=== PATIENT | female | born 1995 | race Asian ===

== ENCOUNTER 2017-04-10 05:01 | Inpatient (IN) | payer MEDICAID ==
[~2017-04-10] VITALS: Ht 165.1 cm; Wt 79.5 kg
[~2017-04-10 05:01] MED LIST: LACTATED RINGER'S 1,000 ML IV PRN
[2017-04-10 05:29] VITALS: BP 130/88; PULSE 81; RESP 20; Ht 165.1 cm; Wt 79.5 kg
--- NOTE | 2017-04-10 05:53 | TRIAGE ---
OB Triage Datetime Report Generated by CPN: 04/10/2017 05:53 Datetime: 04/10/2017 05:52 Assessment Type: Admission Assessment Maternal Assessment Level of Consciousness: Fully Conscious DTR's/Clonus: DTRs 2+; No Clonus Headache: Denies Blurred Vision: No Respiratory Effort: Unlabored; Regular Rhythm; Equal Expansion Breath Sounds, Left: Clear and Equal Breath Sounds, Right: Clear and Equal Nausea/Vomiting: Denies RUQ Epigastric Pain: Denies Facial Edema: None Fall Risk Assessment History of Falling: (0) No Secondary Diagnosis: (0) No Ambulatory Aid: (0) Bedrest/Nurse Assist IV Therapy: (0) No Gait: (0) Normal/Bedrest/Immobile Mental Status: (0) Oriented to Own Ability Fall Score: 0 Fall Risk Score Definition: No Risk: No action required Datetime: 04/10/2017 05:36 Time of Arrival: 04/10/2017 05:36 EGA: 41.0 Arrived By: Stretcher Arrived From: Other Unit in Hospital Datetime: 04/10/2017 05:24 Vaginal Exam Dilatation (cms): 4.0 Effacement (%): 90 Station: -2 Exam By: r tyson Datetime: 04/10/2017 05:00 Time of Arrival: 04/10/2017 05:00 EGA: 41.0 Arrived By: Ambulatory Arrived From: Home Chief Complaint: uterine contractions since 344 Movement: Present Contractions: Regular Time Contractions Began: 04/10/2017 03:45 Contractions: 3-5 Rupture of Membranes: Denies Vaginal Bleeding: None Vaginal Discharge: Denies Recent Sexual Intercouse: Denies Abdominal Trauma: Not Applicable Patient Complaints: None Time Provider Notified: 04/10/2017 05:15 Provider Notified: anurag Initial Plan: monitors apply, call
[2017-04-10] MEDS: LACTATED RINGER'S 1,000 ML IV SCH ×2 (05:55→07:05)
[2017-04-10] MEDS ORDERED: CARBOPROST 250 MCG INJ IM PRN (06:00)
[2017-04-10] MEDS ORDERED: OXYTOCIN 30 UNITS/LR 500 ML IV PRN (06:00)
[2017-04-10] MEDS ORDERED: MISOPROSTOL 200 MCG TAB PR PRN (06:00)
[2017-04-10] MEDS ORDERED: LIDOCAINE 1% (MPF) 30 ML INJ INJ PRN (06:00)
[2017-04-10] MEDS ORDERED: METHYLERGONOVINE 0.2 MG INJ IM PRN (06:00)
[2017-04-10] MEDS ORDERED: AMPICILLIN 2 GM/NS (PMX) 100 ML IV ONE (06:00)
[2017-04-10] MEDS ORDERED: IBUPROFEN 600 MG TAB PO PRN (06:00)
[2017-04-10] MEDS ORDERED: OXYTOCIN 30 UNITS/LR 500 ML IV SCH ×2 (06:00)
[2017-04-10 06:10] LABS: BASOPHILS % 0.2 % (0.0-2.0); EOSINOPHILS % 0.2 % (0.0-7.0); HEMOGLOBIN 13.9 g/dl (12.0-16.0); LYMPHOCYTES % 21.4 % (15.0-51.0); MEAN CORPUSCULAR HEMOGLOBIN 31.9 pg (29.0-33.0); MEAN CORPUSCULAR HGB CONC 35.6 g/dl (32.0-37.0); MEAN CORPUSCULAR VOLUME 89.4 fl (82.0-101.0); MEAN PLATELET VOLUME 10.3 fl (7.4-10.4); MONOCYTE # 0.9 10^3/ul (0.3-0.9); MONOCYTES % 6.6 % (0.0-11.0); NEUTROPHIL # 9.9 10^3/ul (1.6-7.5); PLATELET COUNT 219 10^3/UL (140-415); RED BLOOD COUNT 4.36 10^6/ul (4.20-5.40); RED CELL DISTRIBUTION WIDTH 12.1 % (11.5-14.5)
[2017-04-10 06:34] LABS: INR 0.9; PROTIME 12.1 Sec (12.2-14.2); PT RATIO 0.9
[2017-04-10 06:35] LABS: PARTIAL THROMBOPLASTIN TIME 28.3 Sec (25.0-35.0)
[2017-04-10] MEDS ORDERED: FENTAnyl 2MCG/ML-ROPIV 0.2% 100 ML ONE (07:12)
[2017-04-10 07:45] LABS: ALBUMIN 3.6 g/dl (3.3-4.9); ALBUMIN/GLOBULIN RATIO 1.16; BILIRUBIN,INDIRECT 0.2 mg/dl (0-1.1); BILIRUBIN,TOTAL 0.2 mg/dl (0.2-1.3); CALCIUM 9.3 mg/dl (8.4-10.2); CREATININE 0.57 mg/dl (0.44-1.00); POTASSIUM 3.9 mmol/L (3.5-5.1); TOTAL PROTEIN 6.7 g/dl (6.1-8.1); URIC ACID 6.3 mg/dl (3.1-7.9)
--- NOTE | 2017-04-10 08:16 | HP ---
Date/Time of Note Date/Time of Note DATE: 04/10/17 TIME: 08:13 OB - History Hx of Present Chief Complaint: contractions Estimated Due Date: Apr 03, 2017 : 1 Para: 0 Spontaneous : 0 Therapeutic : 0 Care: Good Care Ultrasounds: Normal mid trimester US Obstetrical Complications: None Medical Complications: None Past Family/Social History * Past Medical, Surgical, Family and Obstetric Histories reviewed from chart. GBS Status: Positive OB Admission Exam Vital Signs Vital Signs Vital Signs Date Time Temp Pulse Resp B/P Pulse Ox O2 Delivery O2 Flow Rate FiO2 04/10/17 05:29 98.1 81 20 130/88 Room Air Physical Exam HEENT: WNL Heart: Rhythm Normal Lungs: Clear, Equal Abdomen: WNL Extremities: Normal Reflexes: Normal Cervical Dilatation: 4cm Effacement: 100% Station: -1 Heart Rate: 120's Accelerations: Accelerations Present Decelerations: No Decelerations Varibility: Moderate Last 72 hours Lab Results CBC & BMP 04/10/17 05:50 Liver Function Test 04/10/17 05:50 Alanine Aminotransferase (ALT/SGPT) 24 Albumin 3.6 Alkaline Phosphatase 147 H Aspartate Amino Transf (AST/SGOT) 33 Direct Bilirubin 0.00 Total Protein 6.7 OB Assessment/Plan Reason for admission: active labor Plan: Expectant Management ARLINE LUA MD Apr 10, 2017 08:16
[2017-04-10] MEDS ORDERED: FENTAnyl 2MCG/ML-ROPIV 0.2% 100 ML BAG EPI SCH (09:00)
[2017-04-10] MEDS ORDERED: DIPHENHYDRAMINE 50 MG INJ IV PRN (09:00)
[2017-04-10] MEDS ORDERED: ONDANSETRON 4 MG INJ IV PRN ×2 (09:00→16:30)
[2017-04-10] MEDS ORDERED: NALOXONE (0.4 MG/ML) INJ IV PRN (09:00)
[2017-04-10] MEDS ORDERED: TRIMETHOBENZAMIDE 100 MG/ML VIAL IM PRN (09:00)
[2017-04-10] MEDS ORDERED: AMPICILLIN 1 GM/NS (PMX) 50 ML IV SCH (10:00)
[2017-04-10 10:53] LABS: ADD UMIC YES; UR ASCORBIC ACID NEGATIVE (NEGATIVE); UR BACTERIA FEW /HPF (NONE SEEN); UR BILIRUBIN (Dip) NEGATIVE (NEGATIVE); UR BLOOD (Dip) 2+ mg/dL (NEGATIVE); UR CLARITY SLIGHTLY CLOUDY (CLEAR); UR COLOR YELLOW (YELLOW); UR GLUCOSE (Dip) NEGATIVE (NEGATIVE); UR KETONES (Dip) NEGATIVE (NEGATIVE); UR LEUKOCYTE ESTERASE (Dip) 1+ Leu/ul (NEGATIVE); UR NITRITE (Dip) NEGATIVE (NEGATIVE); UR RBC 0 /HPF (0-5); UR SPECIFIC GRAVITY (Dip) 1.013 (1.003-1.030); UR SQUAMOUS EPITHELIAL CELL FEW /HPF (FEW); UR TOTAL PROTEIN (Dip) NEGATIVE (NEGATIVE); UR UROBILINOGEN (Dip) NEGATIVE (NEGATIVE)
--- NOTE | 2017-04-10 14:46 | LDN ---
Date/Time of Note Date/Time of Note DATE: 04/10/17 TIME: 14:42 Delivery Summary Normal spontaneous vaginal delivery of a baby from OA position shoulders delivered without any difficulty rest of the baby's body follow cord clamped after stopped pulsation placenta is spontaneous expulsion inspected complete patient sustained small first-degree perineal laceration estimated blood loss 300 cc Weeks of Gestation 41 week Placenta Delivered: Spontaneously Meconium: none Episiotomy: No Perineal laceration: 1 Laceration repair: First-degree perineal laceration repaired with 3-0 chromic catgut Anesthesia type: Epidural Sponge & Needle done & correct: Yes All needle counts correct: Yes Any foreign bodies felt in the: No Problems: Infant Delivery Information Sex Sex: male Apgars 1 Minute: 8 5 Minute: 9 Suctioning Nose & mouth suctioned at niraj: Yes Delee suction performed: No Umbilical Cord Umbilical cord with: 3 Vessels Cord presentations: nuchal cord ELAINE MAY MD Apr 10, 2017 14:46
[2017-04-10] MEDS: OXYTOCIN 30 UNITS/LR 500 ML IV SCH ×2 (16:03→19:14)
[2017-04-10] MEDS ORDERED: OXYCODONE/ASPIRIN (4.88/325) TAB PO PRN ×2 (16:30)
[2017-04-10] MEDS ORDERED: BENZOCAINE 20% 56 ML SPRAY TOP PRN (16:30)
[2017-04-10] MEDS ORDERED: LANOLIN 7 GM TUBE TOP PRN (16:30)
[2017-04-10] MEDS ORDERED: WITCH HAZEL/GLYCERIN PAD PR PRN (16:30)
[2017-04-10] MEDS ORDERED: DIBUCAINE 1% 30 GM OINT TOP PRN (16:30)
[2017-04-10] MEDS ORDERED: HYDROCODONE/APAP (5/325) TAB PO PRN ×2 (16:30)
[2017-04-10] MEDS ORDERED: ACETAMINOPHEN 325 MG TAB PO PRN (16:30)
[2017-04-10] MEDS: IBUPROFEN 600 MG TAB PO SCH ×2 (17:55→23:23)
[2017-04-10 20:00] VITALS: BP 134/82; PULSE 68; RESP 18
[2017-04-10] MEDS ORDERED: INFLUENZA VIRUS VACCINE 0.5 ML (DISPENSING) IM* ONE (20:00)
[2017-04-10] MEDS: SENNA/DOCUSATE NA (8.6MG/50MG) TAB PO SCH (20:55)
[2017-04-10 21:43] VITALS: BP 123/75; PULSE 80; RESP 18
[2017-04-11 00:30] VITALS: BP 120/70; PULSE 78; RESP 18
[2017-04-11] MEDS: IBUPROFEN 600 MG TAB PO SCH ×3 (06:52→18:05)
[2017-04-11 08:30] VITALS: BP 122/75; PULSE 72; RESP 16
[2017-04-11] MEDS: SENNA/DOCUSATE NA (8.6MG/50MG) TAB PO SCH ×2 (09:39→22:05)
[2017-04-11 10:07] LABS: BASOPHILS % 0.2 % (0.0-2.0); EOSINOPHILS % 0.3 % (0.0-7.0); HEMOGLOBIN 11.8 g/dl (12.0-16.0); LYMPHOCYTES # 1.9 10^3/ul (0.8-2.9); LYMPHOCYTES % 12.2 % (15.0-51.0); MEAN CORPUSCULAR HEMOGLOBIN 31.9 pg (29.0-33.0); MEAN CORPUSCULAR HGB CONC 34.7 g/dl (32.0-37.0); MEAN CORPUSCULAR VOLUME 91.9 fl (82.0-101.0); MEAN PLATELET VOLUME 10.6 fl (7.4-10.4); MONOCYTE # 0.7 10^3/ul (0.3-0.9); MONOCYTES % 4.6 % (0.0-11.0); NEUTROPHIL # 12.6 10^3/ul (1.6-7.5); NEUTROPHILS % 82.3 % (39.0-77.0); PLATELET COUNT 197 10^3/UL (140-415); RED CELL DISTRIBUTION WIDTH 12.4 % (11.5-14.5); WHITE BLOOD COUNT 15.4 10^3/ul (4.8-10.8)
[2017-04-11 12:00] VITALS: BP 108/63; PULSE 70; RESP 17
[2017-04-11 16:00] VITALS: BP 113/58; PULSE 74; RESP 16
[2017-04-11 19:35] VITALS: BP 117/80; PULSE 80; RESP 17
[2017-04-12] MEDS: IBUPROFEN 600 MG TAB PO SCH ×3 (00:17→12:26)
[2017-04-12 04:00] VITALS: BP 123/87; PULSE 88; RESP 17
[2017-04-12 08:00] VITALS: BP 123/71; PULSE 72; RESP 17
[2017-04-12] MEDS ORDERED: MEASLES,MUMPS,RUBELLA VACCINE INJ SC* ONE (09:00)
[2017-04-12] MEDS: SENNA/DOCUSATE NA (8.6MG/50MG) TAB PO SCH (09:16)
--- NOTE | 2017-04-12 09:42 | PD.PPDC ---
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
--- NOTE | 2017-04-12 09:44 | DS ---
Date/Time of Note Date/Time of Note DATE: 04/12/17 TIME: 09:42 Discharge Summary Admission/Discharge Info Admit Date/Time Apr 10, 2017 at 05:31 Discharge Date/Time April 12, 2017 at 9 AM Patient Condition: Good Procedures Normal spontaneous vaginal Hx of Present Illness Term in labor Hospital Course Satisfactory uneventful Follow-up Plan instruction given recommended to make appointment to be seen at the clinic in 2 weeks Primary Care Provider Care Physician No Primary Time spent on discharge: < 30 minutes Pending Labs Laboratory Tests Test 04/12/17 08:57 White Blood Count Pending Red Blood Count Pending Hemoglobin Pending Hematocrit Pending Mean Corpuscular Volume Pending Mean Corpuscular Hemoglobin Pending Mean Corpuscular Hemoglobin Concent Pending Red Cell Distribution Width Pending Platelet Count Pending Mean Platelet Volume Pending ELAINE MAY MD Apr 12, 2017 09:44
[2017-04-12 09:50] LABS: BASOPHILS % 0.1 % (0.0-2.0); EOSINOPHILS # 0.1 10^3/ul (0.0-0.5); EOSINOPHILS % 1.3 % (0.0-7.0); HEMATOCRIT 31.1 % (37.0-47.0); LYMPHOCYTES # 1.7 10^3/ul (0.8-2.9); LYMPHOCYTES % 16.6 % (15.0-51.0); MEAN CORPUSCULAR HEMOGLOBIN 32.9 pg (29.0-33.0); MEAN CORPUSCULAR HGB CONC 35.4 g/dl (32.0-37.0); MEAN CORPUSCULAR VOLUME 93.1 fl (82.0-101.0); MEAN PLATELET VOLUME 10.6 fl (7.4-10.4); MONOCYTE # 0.6 10^3/ul (0.3-0.9); NEUTROPHIL # 7.7 10^3/ul (1.6-7.5); NEUTROPHILS % 75.5 % (39.0-77.0); PLATELET COUNT 200 10^3/UL (140-415); RED BLOOD COUNT 3.34 10^6/ul (4.20-5.40); RED CELL DISTRIBUTION WIDTH 12.3 % (11.5-14.5); WHITE BLOOD COUNT 10.2 10^3/ul (4.8-10.8)
--- NOTE | 2017-04-12 20:17 | PN ---
Date/Time of Note Date/Time of Note DATE: 04/12/17 TIME: 20:08 OB Subjective Subjective Subjective April 11/2017 Post day 1 Doing Well Afebrile Ambulatory Chest Clear Slightly elevated temp WBC 75116 Breasts are soft , Nipples are intact Abdomen is soft Fundus is firm Moderate amount of lochia No calf tenderness No ankle edema Chest clear Perineum is healing Laboratory Tests Test 04/12/17 08:57 White Blood Count 10.210^3/ul Red Blood Count 3.3410^6/ul Hemoglobin 11.0g/dl Hematocrit 31.1% Mean Corpuscular Volume 93.1fl Mean Corpuscular Hemoglobin 32.9pg Mean Corpuscular Hemoglobin Concent 35.4g/dl Red Cell Distribution Width 12.3% Platelet Count 49998^3/UL Mean Platelet Volume 10.6fl Neutrophils % 75.5% Lymphocytes % 16.6% Monocytes % 6.0% Eosinophils % 1.3% Basophils % 0.1% Nucleated Red Blood Cells % 0.0/100WBC Neutrophils # 7.710^3/ul Lymphocytes # 1.710^3/ul Monocytes # 0.610^3/ul Eosinophils # 0.110^3/ul Basophils # 0.010^3/ul Nucleated Red Blood Cells # 0.010^3/ul Current Medications Medications (Trade) Dose Ordered Sig/Dolores Route PRN Reason Start Time Stop Time Status Last Admin Dose Admin Lactated Ringer's 1,000 ml @ 125 mls/hr Q8H IV 04/10/17 05:31 04/10/17 16:05 DC 04/10/17 07:05 Ampicillin 100 ml @ 100 mls/hr ONCE ONCE IV 04/10/17 06:00 04/10/17 06:59 DC 04/10/17 05:55 Ampicillin (Ampicillin 1 Gm/ NS (Pmx)) 50 ml @ 100 mls/hr Q4H IV 04/10/17 10:00 04/10/17 16:05 DC 04/10/17 10:16 Lidocaine 30 ml 30 ml ONCE PRN INJ EPISIOTOMY/TEARING 04/10/17 06:00 04/10/17 16:05 DC Oxytocin/Lactated Ringer's 500 ml @ 125 mls/hr ONCE -MAY REPEAT X1 IV 04/10/17 06:00 04/10/17 16:05 DC 04/10/17 14:20 Oxytocin/Lactated Ringer's 500 ml @ 125 mls/hr ONCE IV 04/10/17 06:00 04/10/17 16:05 DC 04/10/17 14:24 Ibuprofen 600 mg 600 mg ONCE PRN PO Mild Pain (Pain Score 1-3) 04/10/17 06:00 04/10/17 16:05 DC 04/10/17 15:14 Lactated Ringer's 1,000 ml @ 1,000 mls/hr Q1H PRN IV PRE-EPIDURAL BOLUS 04/10/17 05:00 04/10/17 16:05 DC Oxytocin/Lactated Ringer's 500 ml @ 0 mls/hr ONCE PRN IV For Hemorrhage Management 04/10/17 06:00 04/10/17 16:05 DC Methylergonovine Maleate (Methergine) 0.2 mg ONCE PRN IM VAGINAL BLEEDING 04/10/17 06:00 04/10/17 16:05 DC 04/10/17 14:19 Carboprost Tromethamine (Hemabate) 250 mcg ONCE PRN IM VAGINAL BLEEDING 04/10/17 06:00 04/10/17 16:05 DC Misoprostol 1000 mcg 1,000 mcg ONCE PRN ME VAGINAL BLEEDING 04/10/17 06:00 04/10/17 16:05 DC Fentanyl/ Ropivacaine 100 ml @ ud STK-MED ONCE .ROUTE 04/10/17 07:12 04/10/17 07:13 DC Naloxone HCl (Narcan) 0.1 mg Q2M PRN IV FOR RESP RATE 8 OR LESS 04/10/17 09:00 04/10/17 16:05 DC Diphenhydramine HCl (Benadryl) 25 mg Q6H PRN IV ITCHING 04/10/17 09:00 04/10/17 16:05 DC Ondansetron HCl (Zofran Inj) 4 mg Q6H PRN IV NAUSEA AND/OR VOMITING 04/10/17 09:00 04/10/17 16:05 DC Trimethobenzamide HCl (Tigan) 200 mg Q6H PRN IM NAUSEA AND/OR VOMITING 04/10/17 09:00 04/10/17 16:05 DC Fentanyl/ Ropivacaine 100 ml 100 ml EPIDURAL INFUSION EPI 04/10/17 09:00 04/10/17 16:05 DC Oxytocin/Lactated Ringer's 500 ml @ 125 mls/hr Q4H IV 04/10/17 16:03 04/11/17 00:02 DC 04/10/17 19:14 Ibuprofen (Motrin) 600 mg Q6 PO 04/10/17 18:00 04/12/17 16:17 DC 04/12/17 12:26 Acetaminophen (Tylenol Tab) 650 mg Q4H PRN PO PAIN LEVEL 1-5 04/10/17 16:30 04/12/17 16:17 DC Acetaminophen/ Hydrocodone Bitart ([place] (5/325)) 1 tab Q4H PRN PO PAIN LEVEL 1-5 04/10/17 16:30 04/12/17 16:17 DC Acetaminophen/ Hydrocodone Bitart ([place] (5/325)) 2 tab Q4H PRN PO PAIN LEVEL 6-10 04/10/17 16:30 04/12/17 16:17 DC Oxycodone/Aspirin (Percodan) 1 tab Q3H PRN PO PAIN LEVEL 1-5 04/10/17 16:30 04/12/17 16:17 DC Oxycodone/Aspirin (Percodan) 2 tab Q3H PRN PO PAIN LEVEL 6-10 04/10/17 16:30 04/12/17 16:17 DC Ondansetron HCl (Zofran Inj) 4 mg Q6H PRN IV NAUSEA AND/OR VOMITING 04/10/17 16:30 04/12/17 16:17 DC Senna/Docusate Sodium (Senokot-S) 1 tab BID PO 04/10/17 21:00 04/12/17 16:17 DC 04/12/17 09:16 Witch [place]/ Glycerin (Tucks Pads) 1 pad BEDSIDE MEDICATION PRN ME HEMORRHOID/EPISIOTMY PAIN 04/10/17 16:30 04/12/17 16:17 DC 04/10/17 17:55 Benzocaine (Dermoplast [place]) 1 spray BEDSIDE MEDICATION PRN TOP HEMORRHOID/EPISIOTMY PAIN 04/10/17 16:30 04/12/17 16:17 DC 04/10/17 17:55 Dibucaine (Nupercainal) 1 applic BEDSIDE MEDICATION PRN TOP HEMORRHOID/EPISIOTMY PAIN 04/10/17 16:30 04/12/17 16:17 DC Lanolin ([id number]) 1 applic BEDSIDE MEDICATION PRN TOP BEDSIDE FOR VIN TO NIPPLES 04/10/17 16:30 04/12/17 16:17 DC 04/10/17 17:56 Measles/Mumps/ Rubella Vaccine Live (Mmr Ii Vaccine) 0.5 ml ONCE ONCE SC* 04/12/17 09:00 04/12/17 09:01 DC Influenza Virus Vaccine (Fluzone) 0.5 ml ONCE ONCE IM* 04/10/17 20:00 04/10/17 20:01 DC New born is doing well, Breast feeding Will repeat CBC tomorrow. WILLI TUCKER MD Apr 12, 2017 20:17
== END 2017-04-12 16:17 | disposition home or self-care (01) | DRG 775 ==
LOC: OBT 05:01 → L-D 05:02 → OBT 05:31 → L-D 05:31 → PP1 16:25
PROVIDERS: ADMIT Obstetrics & Gynecology; ATTEND Obstetrics & Gynecology
PROC: 10E0XZZ Delivery of Products of Conception, External Approach (ICD-10-PCS; principal; 2017-04-10)
PROC: 0HQ9XZZ Repair Perineum Skin, External Approach (ICD-10-PCS; 2017-04-10)
DX: O70.0 First degree perineal laceration during delivery (principal); Z37.0 Single live birth; Z3A.41 41 weeks gestation of pregnancy
CPT/HCPCS: 62319; 80053; 81001; 84560; 85025; 85384; 85610; 85730; 86592; 86900; 86901; 87340; 90686; 99464; G0463; J0290; J2210; J2590; J3010; J7120

== ENCOUNTER 2019-04-27 14:03 | Outpatient (CLI) | payer MEDICAID ==
[~2019-04-27] VITALS: Ht 165.1 cm; Wt 72.4 kg
[~2019-04-27 14:03] MED LIST changes: -LACTATED RINGER'S 1,000 ML IV PRN; +PNV11TAB PO
[2019-04-27 14:19] VITALS: Ht 165.1 cm; Wt 72.4 kg
== END 2019-04-27 18:00 | disposition home or self-care (01) ==
LOC: OBT 14:03 → L-D 14:03 → OBT 18:00
PROVIDERS: ATTEND Obstetrics & Gynecology
DX: O26.893 Other specified pregnancy related conditions, third trimester (principal); Z3A.32 32 weeks gestation of pregnancy; R10.9 Unspecified abdominal pain
CPT/HCPCS: 76818; 81001; 85025; Z7500; G0463